=== PATIENT | male | born 1995 | race Two or more races ===

== ENCOUNTER 2025-03-03 09:03 | Outpatient (RCR) | payer BC, SELFPAY ==
--- NOTE | 2025-03-03 10:05 | CTCCONSULT_ITS ---
Patient: KYLER CLOUD : 1995 MR#: [id number] Page 2 of 2 CONSULTATION NOTE DATE OF CONSULTATION: 03/03/2025 NAME: KYLER CLOUD ACCOUNT: [id number] : 1995 AGE: 29 REFERRING PHYSICIAN: Joe Montero MD PRIMARY PHYSICIAN: REASON FOR VISIT: Kyler Tena, a 29-year-old male with dyslipidemia, presented for evaluation of bilateral lymphadenopathy and occasional night sweats. Recent right inguinal lymph node biopsy showed reactive lymphadenopathy without malignancy. Laboratory results revealed elevated hemoglobin (17.7) and WBC (13.7). 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 Assessment included lymphadenopathy and polycythemia. Plan includes PET-CT scan, , testosterone and erythropoietin levels, bone marrow biopsy, LDL, uric acid, and infectious disease workup. HISTORY OF PRESENT ILLNESS: Chief Complaint Swollen lymph nodes, occasional night sweats History of Present Illness Kyler Tena, a 29-year-old male with dyslipidemia, presents for follow-up of lymphadenopathy and evaluation of possible lymphoma. The patient initially had a right inguinal lymph node biopsy on 01/28/2025, which showed reactive lymphadenopathy without evidence of malignancy. An ultrasound revealed several swollen lymph nodes on both sides. The patient reports experiencing occasional night sweats, though they are not severe. He denies any weight loss or changes in appetite. There is no mention of fatigue, fever, or other B symptoms typically associated with lymphoma. 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 He denies any family history of blood cancers. The patient's lifestyle includes the use of creatine and protein supplements, but he denies using testosterone. There is no mention of alcohol consumption, smoking, or illicit drug use. 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 Negative for weight loss or appetite changes. Hematological/Lymphatic: Positive for swollen lymph nodes on both sides. 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 No Medications?Palabra Meds? Medications Last Reconciled by Merry Vazquez RN on 03/03/2025 ALLERGIES: No Known Drug Allergies REVIEW OF SYSTEMS: A complete 14-point review of systems was performed and is negative except as noted in interval history. PHYSICAL EXAMINATION: VITAL SIGNS: Temperature?99, B/P?144/107, Height?68?inches, Oxygen?Saturation?97% Weight?188?lbs PAIN: 0 - No pain ECOG Performance Status: 0 - Asymptomatic and fully active GENERAL APPEARANCE: Appears well, in no apparent distress, appropriately interactive. HEENT: Normocephalic, no temporal wasting, normal conjunctiva, no scleral icterus, normal hearing, lips without lesions, neck normal range of motion. CARDIOVASCULAR: Not assessed. PULMONARY: Normal respiratory effort, no respiratory distress or use of accessory muscles, speaking in full sentences, no tachypnea. EXTREMITIES: No pedal edema or cyanosis. SKIN: Normal skin appearance. NEUROLOGIC: Alert and oriented x4. PSHYCHIATRIC: Appropriate affect, mood normal, behavior normal, intact thought and speech. No lymphadenopathy anywhere palpable LABORATORY DATA: I have personally reviewed and interpreted each of the patient?s relevant lab tests, abnormal findings are below: Date ASSESSMENT/PLAN: 29-year-old male with dyslipidemia presenting for evaluation of lymphadenopathy and night sweats, with recent negative right inguinal lymph node biopsy. Lymphadenopathy Assessment: Patient presents with lymphadenopathy, confirmed by ultrasound showing several swollen lymph nodes bilaterally. Right inguinal lymph node biopsy on 01/28/2025 revealed reactive lymphadenopathy without evidence of malignancy. Patient reports occasional night sweats, not severe, without associa linda weight loss or appetite changes. Hemoglobin is elevated at 17.7, with WBC 13.7 and platelets 339. Kidney function is normal. Patient uses creatine and protein supplements but denies testosterone use. 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 Family history is negative for blood cancers. Given these findings, a thorough work-up for lymphoma and other potential causes of lymphadenopathy is warranted. Plan: - Order PET-CT scan - Order testosterone level - Order erythropoietin level - Schedule bone marrow biopsy - Order LDL and uric acid tests - Order infectious work-up: cocci, hepatitis, HIV - Follow-up appointment in 3-4 weeks Polycythemia Assessment: Patient's hemoglobin is elevated at 17.7, indicating polycythemia. This finding, in conjunction with the lymphadenopathy, warrants further investigation to determine the underlying cause. Potential etiologies include primary polycythemia vera or secondary causes related to the patient's sup plement use or occupational exposures. Plan: - Evaluate erythropoietin level (as ordered above) - Assess testosterone level (as ordered above) - Bone marrow biopsy (as scheduled above) will also help evaluate for polycythemia vera/proliferative disorder ORDERS: PET/CT scan Order # Description [id number] Comprehensive Metabolic Panel - 12 + CBC with Auto Diff + Uric Acid, Serum [id number] Lactate Dehydrogenase (LDH) [id number] MD Follow Up 4 Week RETURN TO CLINIC: 4 weeks BILLING AND COMPLIANCE: I reviewed external records from providers outside my specialty as summarized above. I spent a total of 50 minutes on this patient?s care on the day of their visit excluding time spent related to any billed procedures. This time includes time spent with the patient as well as time spent documenting in the medical record, reviewing patients records and tests, obtaining history, placing orders, communicating with other healthcare professionals, counseling the patient, family or caregiver, and/or care coordination for the diagnoses above. Electronically Signed by: Abel Clarke MD T: 10:02 AM CC: PCP: Referring: Joe Montero This document was completed utilizing speech recognition software. Grammatical errors, random word insertions, pronoun errors, and incomplete sentences are an occasional consequence of this system due to software limitations, ambient noise, and hardware issues. Any formal questions or concerns about the content, text or information contained within the body of this dictation should be directly addressed to the provider for clarification.
== END 2025-03-29 23:59 | disposition home or self-care (01) ==
LOC: SCTC 09:03
PROVIDERS: PCP Family Medicine; Referring Provider Family Medicine; Visit Provider Internal Medicine Hematology & Oncology
DX: R59.0 Localized enlarged lymph nodes (principal); D72.829 Elevated white blood cell count, unspecified; R61 Generalized hyperhidrosis; E78.5 Hyperlipidemia, unspecified; D75.1 Secondary polycythemia
CPT/HCPCS: 99213; G0463

== ENCOUNTER 2025-03-10 06:36 | Outpatient (CLI) | payer BC, SELFPAY ==
[2025-03-06 15:05] VITALS: BMI 27.8
[2025-03-10] VITALS (10 sets, daily range): BP systolic 149–177; BP diastolic 95–122; PULSE 60–81; RESP 14–21; TEMP 36.7–36.8; O2SAT 97–100
[2025-03-10 07:25] LABS: Basophils # (Auto) 0.1 Thou/mm3 (0.0-0.2); Basophils % (Auto) 1 % (0-2.5); Eosinophils % (Auto) 9 % (0-10); Hematocrit 47.4 % (41.0-53.0); Hemoglobin 16.6 g/dL (13.5-16.0); Immature Granulocytes % (Auto) 1 % (0-0); Lymphocytes # (Auto) 3.3 Thou/mm3 (1.0-4.8); Lymphocytes % (Auto) 29 % (10-50); Mean Corpuscular Hemoglobin 31.7 pg (25.0-35.0); Mean Corpuscular Volume 91 fL (80-100); Monocytes # (Auto) 0.9 Thou/mm3 (0.0-0.8); Monocytes % (Auto) 8 % (0-12); Neutrophils # (Auto) 6.1 Thou/mm3 (1.8-7.7); Neutrophils % (Auto) 53 % (37-80); Nucleated Red Blood Cell % 0 /100 WBC (0); Platelet Count 292 Thou/mm3 (140-440); RDW Standard Deviation 45.2 fL (35.1-43.9); Red Blood Count 5.23 Miln/mm3 (4.50-5.90); White Blood Count 11.5 Thou/mm3 (3.8-10.6)
[2025-03-10 08:20] LABS: INR 0.9 (0.9-1.3); Partial Thromboplastin Time 25.7 Seconds (22.0-36.0); Prothrombin Time 10.3 Seconds (9.0-12.2)
--- NOTE | 2025-03-10 08:30 | XR_ITS ---
Examination: CT-guided percutaneous bone marrow aspiration right posterior superior iliac crest CT-guided percutaneous bone biopsy deep right posterior superior iliac crest CT pelvis without intravenous contrast Date and time of procedure: March 10, 2025 0930 hours INDICATIONS: Diagnosis leukocytosis Informed consent provided. A timeout was completed verifying correct patient, procedure, site and positioning. Technique: Axial 3 mm sections were obtained for localization of the right posterior superior iliac crest Appropriate area is marked. The patient's site was prepped and draped in sterile fashion Maximal sterile barrier technique utilized, including hand hygiene Local anesthesia was obtained with 1% lidocaine. Low dose protocols were performed. One or more of the following dose reduction techniques were used; automated exposure control, adjustment of the mA and/or KV according to patient size, use of iterative reconstruction technique. Utilizing CT fluoroscopic guidance 14-gauge bone biopsy needle placed in the right posterior superior iliac crest 5 cc marrow aspirate and 5 cm bone core obtained Patient appears in stable condition during this procedure. At completion of the procedure, the patient is in satisfactory condition. Estimated blood loss 2 cc Complete pathology report to follow. Impression: Successful CT-guided percutaneous bone marrow aspiration right posterior superior iliac crest Successful CT-guided percutaneous bone biopsy deep right posterior superior iliac crest
[2025-03-10 08:31] LABS: Flow Cytometry* See Sep Rpt
[2025-03-10] MEDS: SODIUM CHLORIDE 0.9% 250 ML 250 ML 150 ML IV (09:20)
[2025-03-10] MEDS: fentaNYL CIT INJ 50 mCg/ML AMP 2ML 125 MCG IV (09:36)
== END 2025-03-10 11:11 | disposition home or self-care (01) ==
PROVIDERS: Radiology Diagnostic Radiology; Referring Provider Internal Medicine Hematology & Oncology; Visit Provider Internal Medicine Hematology & Oncology
DX: D72.829 Elevated white blood cell count, unspecified (principal); E78.5 Hyperlipidemia, unspecified; Z01.812 Encounter for preprocedural laboratory examination
CPT/HCPCS: 38220; 36415; 77012; 85025; 85610; 85730; J3010; J7050

== ENCOUNTER 2025-04-10 15:32 | Outpatient (RCR) | payer BC, SELFPAY ==
--- NOTE | 2025-04-20 23:59 | CTCFLWUP_ITS ---
Patient: KYLER CLOUD : 1995 Page 2 of 3 FOLLOW UP NOTE DATE OF SERVICE: 04/10/2025 NAME: KYLER CLOUD ACCOUNT: [id number] : 1995 AGE: 29 INTERVAL HISTORY: Chief Complaint Swollen lymph nodes, occasional night sweats History of Present Illness Kyler Tena, a 29-year-old male with dyslipidemia, presents for follow-up of lymphadenopathy and evaluation of possible lymphoma. The patient initially had a right inguinal lymph node biopsy on 01/28/2025, which showed reactive lymphadenopathy without evidence of malignancy. An ultrasound revealed several swollen lymph nodes on both sides. The patient reports experiencing occasional night sweats, though they are not severe. He denies any weight loss or changes in appetite. There is no mention of fatigue, fever, or other B symptoms typically associated with lymphoma. 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 He denies any family history of blood cancers. The patient's lifestyle includes the use of creatine and protein supplements, but he denies using testosterone. There is no mention of alcohol consumption, smoking, or illicit drug use. Patient now presented for follow-up of lymphadenopathy and cancer screening. His workup has included CT scan, biopsy, and bone marrow biopsy, all returning normal/negative results. His hemoglobin is 16.6 g/dL. A PET scan was scheduled for April 15, 2025 and also resulted in negative. Additional blood work was ordered including testosterone, hormone levels, LDH, uric acid, hepatitis panel, cocci, HIV, and quantified erythropoietin to complete the malignancy evaluation. 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 Negative for weight loss or appetite changes. Hematological/Lymphatic: Positive for swollen lymph nodes on both sides. Laboratory, Imaging, and Diagnostic Test Results - Date: 01/28/2025 - Right inguinal lymph node biopsy: Reactive lymphadenopathy, no malignancy - CBC: - Hemoglobin: 17.7 (high) - WBC: 13.7 - Platelets: 339 - Kidney function: Normal - Ultrasound: Several swollen lymph nodes on both sides ONCOLOGY HISTORY: DIAGNOSIS: ?CloneDiagnosis? No cancer 03/10/2025 bone marrow biopsy negative for lymphoma 01/28/2025 lymph node negative for lymphoma 04/15/[address] scan negative DATE OF DIAGNOSIS: Not applicable STAGE/TNM: Not applicable TREATMENT HISTORY: Care?Plan Start?Date Cycle Day Intent HISTORY OF PRESENT ILLNESS: Chief Complaint Swollen lymph nodes, occasional night sweats History of Present Illness Kyler Tena, a 29-year-old male with dyslipidemia, presents for follow-up of lymphadenopathy and evaluation of possible lymphoma. The patient initially had a right inguinal lymph node biopsy on 01/28/2025, which showed reactive lymphadenopathy without evidence of malignancy. An ultrasound revealed several swollen lymph nodes on both sides. The patient reports experiencing occasional night sweats, though they are not severe. He denies any weight loss or changes in appetite. There is no mention of fatigue, fever, or other B symptoms typically associated with lymphoma. 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 He denies any family history of blood cancers. The patient's lifestyle includes the use of creatine and protein supplements, but he denies using testosterone. There is no mention of alcohol consumption, smoking, or illicit drug use. 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 Negative for weight loss or appetite changes. Hematological/Lymphatic: Positive for swollen lymph nodes on both sides. 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 No Medications?Palabra Meds? Medications Last Reconciled by Anna Marie Moncada MD on 04/10/2025 ALLERGIES: No Known Drug Allergies REVIEW OF SYSTEMS: A complete 14-point review of systems was performed and is negative except as noted in interval history. PHYSICAL EXAMINATION:?CloneBlock PE? VITAL SIGNS: Temperature?98.9, B/P?158/108, Oxygen?Saturation?99% Weight?190?lbs ECOG Performance Status: 0 - Asymptomatic and fully active GENERAL APPEARANCE: Appears well, in no apparent distress, appropriately interactive. HEENT: Normocephalic, no temporal wasting, normal conjunctiva, no scleral icterus, normal hearing, lips without lesions, neck normal range of motion. CARDIOVASCULAR: Not assessed. PULMONARY: Normal respiratory effort, no respiratory distress or use of accessory muscles, speaking in full sentences, no tachypnea. EXTREMITIES: No pedal edema or cyanosis. SKIN: Normal skin appearance. NEUROLOGIC: Alert and oriented x4. PSHYCHIATRIC: Appropriate affect, mood normal, behavior normal, intact thought and speech. No lymphadenopathy anywhere palpable LABORATORY DATA: I have personally reviewed and interpreted each of the patient?s relevant lab tests, abnormal findings are below: Date 03/10/25 04/15/25 ??WHITE?BLOOD?COUNT?(Thou/mm3) 11.5?H 9.2 ??RED?BLOOD?COUNT?(Miln/mm3) 5.23 5.31 ??HEMOGLOBIN?(gm/dl) 16.6?H 17.1?H ??HEMATOCRIT?(%) 47.4 48.9 ??PLATELET?COUNT?(Thou/mm3) 292 312 ??NEUTROPHILS?%,?AUTO?(%) 53 58 ??LYMPH?%,?AUTO?(%) 29 27 ??NEUTROPHILS,?AUTO?(Thou/mm3) 6.1 5.4 ??GLUCOSE,RANDOM?(mg/dL) ? 89 ??BLOOD?UREA?NITROGEN?(mg/dL) ? 10 ??CREATININE?(mg/dL) ? 1.20 ??SODIUM?(mmol/L) ? 142 ??POTASSIUM?(mmol/L) ? 4.1 ??CHLORIDE?(mmol/L) ? 102 ??CrCl?(CandG)?(ml/min) ? 108.73 ??AST/SGOT?(Unit/L) ? 51?H ??ALT/SGPT?(Unit/L) ? 94?H ??ALKALINE?PHOSPHATASE?(Unit/L) ? 95 ??BILIRUBIN,?TOTAL?(mg/dL) ? 0.8 ??PROTEIN?TOTAL?(gm/dl) ? 6.7 ??ALBUMIN,?SERUM?(gm/dl) ? 4.2 ??GLOBULIN?(gm/dl) ? 2.5 ??ALBUMIN/GLOBULIN?RATIO ? 1.7 ??CALCIUM,?SERUM?(mg/dL) ? 9.3 ??CALCIUM?SERUM?(CORRECTED)?(mg/dL) ? 9.3 ??LDH,?TOTAL?(Unit/L) ? 194 ASSESSMENT/PLAN:?Shaan Clarke Assessment/Plan? 29-year-old male with dyslipidemia presenting for evaluation of lymphadenopathy and night sweats, with recent negative right inguinal lymph node biopsy. Lymphadenopathy Assessment: Patient presents with lymphadenopathy, confirmed by ultrasound showing several swollen lymph nodes bilaterally. Right inguinal lymph node biopsy on 01/28/2025 revealed reactive lymphadenopathy without evidence of malignancy. Patient reports occasional night sweats, not severe, without associa linda weight loss or appetite changes. Hemoglobin is elevated at 17.7, with WBC 13.7 and platelets 339. Kidney function is normal. Patient uses creatine and protein supplements but denies testosterone use. 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 Family history is negative for blood cancers. Patient had his lymph node biopsy as well as bone marrow biopsy which both came back negative PET CT scan on 04/15/2025 negative Patient has no evidence of lymphoma Polycythemia Assessment: Patient's hemoglobin is elevated at 17.7, indicating polycythemia. This finding, in conjunction with the lymphadenopathy, warrants further investigation to determine the underlying cause. Potential etiologies include primary polycythemia vera or secondary causes related to the patient's sup plement use or occupational exposures. Plan: - Evaluate erythropoietin level (as ordered above) - Assess testosterone level (as ordered above) Phlebotomize if hematocrit is above 45 Will check for JAK2 mutation if on the bone marrow biopsy is negative ORDERS: Order # Description [id number] Follow Up 2 Week [id number] Comprehensive Metabolic Panel - 12 + CBC with Auto Diff RETURN TO CLINIC: BILLING AND COMPLIANCE: I reviewed external records from providers outside my specialty as summarized above. I spent a total of 50 minutes on this patient?s care on the day of their visit excluding time spent related to any billed procedures. This time includes time spent with the patient as well as time spent documenting in the medical record, reviewing patients records and tests, obtaining history, placing orders, communicating with other healthcare professionals, counseling the patient, family or caregiver, and/or care coordination for the diagnoses above. Electronically Signed by: Abel Clarke MD T: 11:57 PM CC: PCP: Referring: Abel Clarke This document was completed utilizing speech recognition software. Grammatical errors, random word insertions, pronoun errors, and incomplete sentences are an occasional consequence of this system due to software limitations, ambient noise, and hardware issues. Any formal questions or concerns about the content, text or information contained within the body of this dictation should be directly addressed to the provider for clarification.
== END 2025-04-28 23:59 | disposition home or self-care (01) ==
LOC: SCTC 15:32
PROVIDERS: Referring Provider Internal Medicine Hematology & Oncology; Visit Provider Internal Medicine Hematology & Oncology
DX: R59.1 Generalized enlarged lymph nodes (principal); R61 Generalized hyperhidrosis; D75.1 Secondary polycythemia
CPT/HCPCS: 99212; G0463

== ENCOUNTER → 2025-04-15 | Outpatient (CLI) | payer BC, SELFPAY ==
--- NOTE | 2025-04-15 10:15 | XR_ITS ---
EXAMINATION: PET/CT FUSION SKULL TO THIGH EXAM DATE AND TIME: April 15, 2025 at 1138 hours INDICATIONS: Diagnosis leukocytosis CTDI:vol (mGy) 6.12 DLP: (mGycm) 558.85 PROCEDURE: 14.7 mCi FDG was administered intravenously To allow for distribution and uptake of radiotracer, the patient was allowed to rest quietly in a shielded room. Imaging was performed on an integrated 16-slice PET/CT scanner, with scanning from the skull base to the mid thigh. Serum blood glucose at the time of the injection was measured 96 mg/dL. CT scanning was performed without oral or intravenous contrast material. FINDINGS: Head and Neck: There is no bonnie hypermetabolism in the neck. The visualized portions of the brain are normal in appearance on CT. Chest: There is no bonnie hypermetabolism in the chest. There are no pulmonary nodules. Abdomen and Pelvis: There is no bonnie hypermetabolism in retroperitoneal or pelvic chains. The spleen is normal in size and FDG avidity. Musculoskeletal: Marrow uptake is within normal range. IMPRESSION: No hypermetabolic chest abdomen or pelvic lesions
[2025-04-15 12:30] LABS: Misc Send Out* See Sep Rpt
[2025-04-15 13:56] LABS: Basophils # (Auto) 0.1 Thou/mm3 (0.0-0.2); Basophils % (Auto) 1 % (0-2.5); Eosinophils # (Auto) 0.5 Thou/mm3 (0.0-0.5); Eosinophils % (Auto) 5 % (0-10); Hematocrit 48.9 % (41.0-53.0); Hemoglobin 17.1 g/dL (13.5-16.0); Immature Granulocytes % (Auto) 0 % (0-0); Immature Granulocytes Auto 0.03 Thou/mm3 (0.00-0.00); Lymphocytes # (Auto) 2.5 Thou/mm3 (1.0-4.8); Lymphocytes % (Auto) 27 % (10-50); Mean Corpuscular Hemoglobin 32.2 pg (25.0-35.0); Mean Corpuscular Volume 92 fL (80-100); Monocytes # (Auto) 0.7 Thou/mm3 (0.0-0.8); Monocytes % (Auto) 8 % (0-12); Neutrophils # (Auto) 5.4 Thou/mm3 (1.8-7.7); Neutrophils % (Auto) 58 % (37-80); Nucleated Red Blood Cell % 0 /100 WBC (0); Platelet Count 312 Thou/mm3 (140-440); RDW Standard Deviation 43.8 fL (35.1-43.9); Red Blood Count 5.31 Miln/mm3 (4.50-5.90); White Blood Count 9.2 Thou/mm3 (3.8-10.6)
[2025-04-15 14:11] LABS: HIV (1&2) Antibody Rapid Non-Reactive
[2025-04-15 14:16] LABS: Alanine Aminotransferase 94 U/L (10-49); Albumin, Serum 4.2 gm/dL (3.5-5.0); Albumin/Globulin Ratio 1.7 (1.2-2.2); Alkaline Phosphatase 95 U/L (46-116); Anion Gap 9 (7-16); Aspartate Amino Transferase 51 U/L (0-34); BUN/Creatinine Ratio 8 Ratio (12-20); Bilirubin,Total 0.8 mg/dL (0.3-1.2); Blood Urea Nitrogen 10 mg/dL (9-23); Calcium 9.3 mg/dL (8.3-10.6); Calcium (Corrected) 9.3 mg/dL (8.5-10.1); Carbon Dioxide 30.7 mMol/L (20.0-31.0); Chloride 102 mMol/L (98-107); Creatinine (Component) 1.2 mg/dL (0.6-1.3); Globulin 2.5 gm/dL (2.3-3.5); Glucose 89 mg/dL (74-106); LDH (Lactate Dehydrogenase) 194 U/L (120-246); Osmolality,Calculated 281 (275-295); Potassium 4.1 mMol/L (3.4-5.1); Sodium 142 mMol/L (136-145); Total Protein 6.7 gm/dL (5.7-8.2); eGFR > 60 See Note
[2025-04-15 14:48] LABS: Hepatitis A Antibody IgM Non Reactive (Non React); Hepatitis B Core Antibody IgM Non Reactive (Non React); Hepatitis B Surface Antigen Non Reactive (Non React); Hepatitis C Antibody Non Reactive (Non React)
[2025-04-16 13:33] LABS: Cocci Serology, IgM Negative (Negative)
[2025-04-17 11:07] LABS: Cocci Serology, IgG Negative (Negative)
[2025-04-22 06:56] LABS: Erythropoietin (EPO)* 6.2 mIU/mL (2.6-18.5); Testosterone,Total* 817 ng/dL (250-1100)
== END | disposition home or self-care (01) ==
LOC: CDIM 10:37 → SCTO 12:08
PROVIDERS: PCP Family Medicine; Referring Provider Internal Medicine Hematology & Oncology; Visit Provider Radiology Diagnostic Radiology
DX: E78.5 Hyperlipidemia, unspecified (principal); D72.829 Elevated white blood cell count, unspecified; R59.0 Localized enlarged lymph nodes
CPT/HCPCS: 36415; 78815; 80053; 80074; 82668; 83615; 84403; 85025; 86331; 86635; 86703; A9552

== ENCOUNTER 2025-05-05 15:42 | Outpatient (RCR) | payer BC, SELFPAY ==
--- NOTE | 2025-05-11 15:14 | CTCFLWUP_ITS ---
Patient: ZEE CLOUD : 1995 MR#: [id number] Page 2 of 2 TELEHEALTH AUDIO FOLLOW UP NOTE DATE OF CONSULTATION: 05/05/2025 NAME: ZEE CLOUD ACCOUNT: [id number] : 1995 AGE: 29 REFERRING PHYSICIAN: Joe Montero MD PRIMARY PHYSICIAN: Joe Montero MD INTERVAL HISTORY: Patient agreed tp [rpceed with telephone visit and gave verbal consent . DIAGNOSIS: Lymphnadenopathy HISTORY OF PRESENT ILLNESS: 29-year-old male with hx of lymphadenopathy and no known diagnosis of malignancy . 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 No Medications Medications Last Reconciled by Anna Marie Salas MA on 05/05/2025 ALLERGIES: No Known Drug Allergies REVIEW OF SYSTEMS: A complete 14-point review of systems was performed and is negative except as noted in interval history. PHYSICAL EXAMINATION: The patient appeared well-nourished, alert, and in no apparent distress via video conferencing. LABORATORY DATA: I have personally reviewed and interpreted each of the patient?s relevant lab tests, abnormal findings are below: ASSESSMENT/PLAN: 29-year-old male with dyslipidemia presenting for evaluation of lymphadenopathy and night sweats, with recent negative right inguinal lymph node biopsy. Lymphadenopathy Assessment: Patient presents with lymphadenopathy, confirmed by ultrasound showing several swollen lymph nodes bilaterally. Right inguinal lymph node biopsy on 01/28/2025 revealed reactive lymphadenopathy without evidence of malignancy. Patient reports occasional night sweats, not severe, without associated weight loss or appetite changes. Hemoglobin is elevated at 17.7, with WBC 13.7 and platelets 339. Kidney function is normal. Patient uses creatine and protein supplements but denies testosterone use. 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 Family history is negative for blood cancers. Patient had his lymph node biopsy as well as bone marrow biopsy which both came back negative PET CT scan on 04/15/2025 negative Patient has no evidence of lymphoma Polycythemia Assessment: Patient's hemoglobin is elevated at 17.7, indicating polycythemia. This finding, in conjunction with the lymphadenopathy, warrants further investigation to determine the underlying cause. Potential etiologies include primary polycythemia vera or secondary causes related to the patient's supplement use or occupational exposures. Plan: epo,testosterone levels and nelia-2 negative Sleep study evaluation ordered ORDERS: Order # Description [id number] Follow Up 6 Month RETURN TO CLINIC: I reviewed the diagnosis, prognosis, and recommended treatment/procedure options with the patient (and/or their legal c s s representative), including the potential benefits, risks, side effects and alternative therapies. We also discussed the option of no treatment and the possibility of clinical trial participation, if applicable. All questions were addressed, and they demonstrated understanding. They provided informed consent to proceed with the proposed plan of care. BILLING AND COMPLIANCE: I reviewed external records from providers outside my specialty as summarized above. I spent a total of 50 minutes on this patient?s care on the day of their visit excluding time spent related to any billed procedures. This time includes time spent with the patient as well as time spent documenting in the medical record, reviewing patients records and tests, obtaining history, placing orders, communicating with other healthcare professionals, counseling the patient, family or caregiver, and/or care coordination for the diagnoses above. I performed this evaluation using real-time Telehealth tools. Prior to initiating, the patient consented to perform this evaluation using Telehealth tools. Electronically Signed by: Abel Clarke MD T: 3:12 PM CC: PCP: Joe Montero Referring: Joe Montero This document was completed utilizing speech recognition software. Grammatical errors, random word insertions, pronoun errors, and incomplete sentences are an occasional consequence of this system due to software limitations, ambient noise, and hardware issues. Any formal questions or concerns about the content, text or information contained within the body of this dictation should be directly addressed to the provider for clarification.
== END 2025-05-29 23:59 | disposition home or self-care (01) ==
LOC: SCTC 15:42
PROVIDERS: PCP Family Medicine; Referring Provider Family Medicine; Visit Provider Internal Medicine Hematology & Oncology
DX: R59.1 Generalized enlarged lymph nodes (principal); R61 Generalized hyperhidrosis; R79.89 Other specified abnormal findings of blood chemistry; E78.5 Hyperlipidemia, unspecified
CPT/HCPCS: 99212; G0463